=== PATIENT | male | born 1990 | race Caucasian/White ===

== ENCOUNTER 2023-11-12 18:06 | Emergency (ER) | payer OTHER, SELFPAY ==
[2023-11-12 18:08] VITALS: BP 143/88
[2023-11-12 18:51] VITALS: BMI 30.4
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
== END 2023-11-12 20:05 | disposition home or self-care (01) ==
LOC: EMR 18:06
PROVIDERS: EMERGENCY PHYSICIAN Emergency Medicine; FAMILY PHYSICIAN Family Medicine
DX: S43.102A Unspecified dislocation of left acromioclavicular joint, initial encounter (principal); W05.1XXA Fall from non-moving nonmotorized scooter, initial encounter
CPT/HCPCS: 99283; 29240; 73030